=== PATIENT | female | born 1995 | race Caucasian/White ===

== ENCOUNTER 2024-01-13 13:06 | Emergency (ER) | payer BC ==
[~2024-01-13] VITALS: Ht 165.1 cm; Wt 67.7 kg
[2024-01-13] MEDS ORDERED: Home HYDROcodone/Acetaminophen 5/325 MG #4 TABS/PACK PO ONE (16:30)
[2024-01-13 17:18] VITALS: BP 124/65
== END 2024-01-13 17:27 | disposition home or self-care (01) ==
LOC: ED 13:06
DX: S92.102A Unspecified fracture of left talus, initial encounter for closed fracture (principal); W10.8XXA Fall (on) (from) other stairs and steps, initial encounter; Y93.01 Activity, walking, marching and hiking; Y92.59 Other trade areas as the place of occurrence of the external cause

== ENCOUNTER → 2024-10-02 | Outpatient (CLI) | payer OTHER ==
[2024-10-02 14:30] LABS: BASO # 0.02 K/mm3 (0.02-0.10); EOS # 0.16 K/mm3 (0.04-0.40); EOS % 3.2 % (1.0-5.0); HEMATOCRIT 41.1 % (37.0-47.0); HEMOGLOBIN 13.1 g/dL (12.5-16.0); LYMPH# 1.35 K/mm3 (1.50-4.00); MEAN CELL VOLUME 94 fl (78-100); MEAN CORPUSCULAR HEMOGLOBIN 30 pg (27-31); MEAN CORPUSCULAR HGB CONC 32 g/dL (33-37); MEAN PLATELET VOLUME 9.2 fl (7.4-10.4); MONO # 0.32 K/mm3 (0.20-0.80); NEU # 3.21 K/mm3 (1.40-6.50); PLATELET COUNT 267 K/mm3 (130-400); RED BLOOD COUNT 4.39 M/mm3 (4.10-5.30); RED CELL DISTRIBUTION WIDTH 13.3 % (11.5-14.5); WHITE BLOOD COUNT 5.1 K/mm3 (4.8-10.8)
[2024-10-02 14:37] LABS: ALBUMIN 4.3 g/dL (3.5-5.0)
[2024-10-02 14:38] LABS: CALCIUM 9.4 mg/dL (8.3-10.5)
[2024-10-02 14:40] LABS: TOTAL PROTEIN 7.3 g/dL (6.4-8.3)
[2024-10-02 14:42] LABS: TOTAL BILIRUBIN 0.7 mg/dL (0.2-1.2)
[2024-10-05 12:36] LABS: ANA SCREEN with REFLEX Negative (Negative)
[2024-10-05 14:10] LABS: ALTERNARIA TENUIS CNT <0.10 kU/L (Class 0); ASPERGILLUS FUMIGATUS AL COUNT <0.10 kU/L (Class 0); BAKERS YEAST ALLERGEN COUNT <0.10 kU/L (Class 0); BERMUDA GRASS ALLERGEN COUNT 0.22 kU/L (()); BOX ELDER-MAPLE ALLERGEN COUNT <0.10 kU/L (Class 0); CAT DANDER ALLERGEN COUNT 5.87 kU/L (Class IV); CLADOSPORIUM ALLERGEN COUNT <0.10 kU/L (Class 0); COCKROACH ALLERGEN COUNT <0.10 kU/L (Class 0); CORN ALLERGEN COUNT <0.10 kU/L (Class 0); COTTONWOOD TREE ALLERGEN COUNT <0.10 kU/L (Class 0); DOG DANDER ALLERGEN COUNT 0.33 kU/L (Class I); DUST MITES (D.F.) ALLERG COUNT <0.10 kU/L (Class 0); DUST MITES (D.P.) ALLERG COUNT <0.10 kU/L (Class 0); EGG WHITE ALLERGEN COUNT 0.11 kU/L (()); ELM TREE ALLERGEN COUNT <0.10 kU/L (Class 0); FIREBUSH ALLERGEN COUNT <0.10 kU/L (Class 0); MILK ALLERGEN COUNT <0.10 kU/L (Class 0); OAK ALLERGEN COUNT <0.10 kU/L (Class 0); ORANGE ALLERGEN COUNT <0.10 kU/L (Class 0); PEANUT ALLERGEN COUNT <0.10 kU/L (Class 0); RICE ALLERGEN COUNT <0.10 kU/L (Class 0); ROUGH MARSH ELDER ALLERG COUNT <0.10 kU/L (Class 0); RUSSIAN THISTLE ALLERGEN COUNT <0.10 kU/L (Class 0); SHORT RAGWEED ALLERGEN COUNT <0.10 kU/L (Class 0); SOYBEAN ALLERGEN COUNT <0.10 kU/L (Class 0); STRAWBERRY ALLERGEN COUNT <0.10 kU/L (Class 0); TOMATO ALLERGEN COUNT <0.10 kU/L (Class 0); WHEAT ALLERGEN COUNT <0.10 kU/L (Class 0)
== END ==
LOC: LAB 14:09
PROVIDERS: Family Medicine
DX: E78.5 Hyperlipidemia, unspecified (principal); J30.2 Other seasonal allergic rhinitis; E03.9 Hypothyroidism, unspecified; I10 Essential (primary) hypertension; M35.9 Systemic involvement of connective tissue, unspecified; K21.9 Gastro-esophageal reflux disease without esophagitis